=== PATIENT | male | born 1985 | race Two or more races ===

== ENCOUNTER 2019-04-08 18:42 | Emergency (ER) | payer SELFPAY ==
[~2019-04-08] VITALS: Ht 170.2 cm; Wt 97.5 kg
[2019-04-08 21:43] VITALS: BP 145/88
== END 2019-04-08 22:44 | disposition home or self-care (01) ==
LOC: ER 18:54
DX: S70.12XA Contusion of left thigh, initial encounter (principal); W22.8XXA Striking against or struck by other objects, initial encounter; Y93.89 Activity, other specified; Y99.8 Other external cause status; Y92.89 Other specified places as the place of occurrence of the external cause

== ENCOUNTER 2019-04-13 09:57 | Emergency (ER) | payer SELFPAY ==
[~2019-04-13] VITALS: Ht 170.2 cm; Wt 95.3 kg
[2019-04-13 10:15] VITALS: BP 139/66
== END 2019-04-13 12:29 | disposition home or self-care (01) ==
LOC: ER 09:57
DX: S70.12XD Contusion of left thigh, subsequent encounter (principal); X58.XXXD Exposure to other specified factors, subsequent encounter

== ENCOUNTER 2019-04-20 11:07 | Emergency (ER) | payer OTHER ==
[~2019-04-20] VITALS: Ht 170.2 cm; Wt 97.5 kg
[2019-04-20 12:43] VITALS: BP 133/97
== END 2019-04-20 15:46 | disposition home or self-care (01) ==
LOC: ER 11:12
DX: S70.12XD Contusion of left thigh, subsequent encounter (principal); S80.02XD Contusion of left knee, subsequent encounter; W20.8XXD Other cause of strike by thrown, projected or falling object, subsequent encounter
CPT/HCPCS: 73562; 93971